=== PATIENT | female | born 1960 | race Caucasian/White ===

== ENCOUNTER → 2020-10-19 | Outpatient (CLI) | payer OTHER ==
[~2020-10-19] MED LIST: CHOL500015 PO; L.AC1CAP6 PO; LISI1TAB23 PO; SIMV40TA20 PO
[2020-10-19 09:29] LABS: MICROSCOPIC NOT IND
[2020-10-19 09:30] LABS: BASOPHILS % (AUTO) 3 % (0-1); EOSINOPHILS % (AUTO) 6 % (1-7); LYMPHOCYTES % (AUTO) 22 % (22-44); MEAN CORPUSCULAR HEMOGLOBIN 31.1 pg (27.0-34.8); MEAN CORPUSCULAR HGB CONC 33.8 g/dL (32.4-35.8); MEAN PLATELET VOLUME 7.9 fL (7.4-10.4); MONOCYTES % (AUTO) 7 % (2-9); NEUTROPHILS % (AUTO) 61 % (42-75); PLATELET COUNT 360 x10^3/uL (130-400); RED BLOOD COUNT 4.68 x10^6/uL (3.82-5.3); RED CELL DISTRIBUTION WIDTH 13.4 % (9.6-15.2)
[2020-10-19 09:32] LABS: MD NO
[2020-10-19 09:42] LABS: ANION GAP 3 mmol/L (5-15); CALCIUM 9.6 mg/dL (8.5-10.1); CHLORIDE 106 mmol/L (98-107)
[2020-10-19 09:45] LABS: ALANINE AMINOTRANSFERASE 34 U/L (12-78); ALKALINE PHOSPHATASE 67 U/L (45-117); BILIRUBIN,TOTAL 0.4 mg/dL (0.2-1.0); CREATININE 1.01 mg/dL (0.55-1.02); TOTAL PROTEIN 7.8 g/dL (6.4-8.2)
== END | disposition home or self-care (01) ==
LOC: STAR 08:29
PROVIDERS: ATTEND Obstetrics & Gynecology Gynecology
DX: Z01.818 Encounter for other preprocedural examination (principal); N84.0 Polyp of corpus uteri; N93.9 Abnormal uterine and vaginal bleeding, unspecified; Z20.822 Contact with and (suspected) exposure to COVID-19
CPT/HCPCS: 36415; 80053; 81003; 85025; 93005; U0003

== ENCOUNTER 2020-10-25 05:38 | Day surgery (SDC) | payer OTHER ==
[~2020-10-25] VITALS: Ht 157.5 cm; Wt 75.7 kg
[2020-10-25] MEDS ORDERED: LACTATED RINGERS 1,000 ML IV SCH (06:30)
[2020-10-25] MEDS ORDERED: LIDOCAINE-MPF 1%, 2ML INFIL ONE (06:30)
[2020-10-25] MEDS ORDERED: CHLORHEXIDINE 15 ML UDC MM ONE (06:30)
[2020-10-25] MEDS ORDERED: BUPIVACAINE/PF 0.25% ONE (06:51)
[2020-10-25] MEDS ORDERED: SILVER NITRATE STICK TP ONE (06:51)
[2020-10-25] MEDS ORDERED: EPINEPHRINE 1 MG/ML, 1ML ONE (06:52)
[2020-10-25] MEDS ORDERED: MIDAZOLAM 1 MG/ML, 2ML ONE (07:09)
[2020-10-25] MEDS ORDERED: FENTANYL PF 100 MCG/2ML ONE (07:09)
[2020-10-25] MEDS ORDERED: KETOROLAC 30 MG/1 ML ONE (07:27)
[2020-10-25] MEDS ORDERED: SUCCINYLCHOLINE 20 MG/ML, 10ML ONE (07:48)
[2020-10-25] MEDS ORDERED: DEXAMETHASONE 4 MG/ML, 1ML ONE (07:48)
[2020-10-25] MEDS ORDERED: ROCURONIUM 10MG/ML,5ML ONE (07:48)
[2020-10-25] MEDS ORDERED: PROPOFOL 10 MG/ML, 20ML ONE (07:48)
[2020-10-25] MEDS ORDERED: CEFAZOLIN 1,000 MG ONE (07:48)
[2020-10-25] MEDS ORDERED: ONDANSETRON 2MG/ML, 2ML ONE (07:48)
[2020-10-25] MEDS ORDERED: GLYCOPYRROLATE 0.2MG/1ML, 5ML ONE (07:48)
[2020-10-25] MEDS ORDERED: NEOSTIGMINE 1 MG/ML, 10ML ONE (07:48)
[2020-10-25] MEDS ORDERED: DIAZEPAM 5 MG/ML, 2ML IVPush PRN ×2 (08:00)
[2020-10-25] MEDS ORDERED: hydrALAzine 20 MG/ML, 1ML IV PRN ×2 (08:00)
[2020-10-25] MEDS ORDERED: HYDROmorphone 2 MG/ML, 1ML IVPush PRN ×2 (08:00)
[2020-10-25] MEDS ORDERED: ALBUTEROL SULFATE 2.5 MG/3 ML NPPB PRN ×2 (08:00)
[2020-10-25] MEDS ORDERED: FENTANYL PF 100 MCG/2ML IV PRN ×2 (08:00)
[2020-10-25] MEDS ORDERED: ACETAMINOPHEN 325 MG TABLET PO PRN ×2 (08:00)
[2020-10-25] MEDS ORDERED: LABETALOL 5MG/ML, 20ML IV PRN ×2 (08:00)
[2020-10-25] MEDS ORDERED: OXYcodone 5 MG/5 ML ORAL.SOL UDC PO PRN ×2 (08:00)
[2020-10-25] MEDS ORDERED: KETOROLAC 30 MG/1 ML IV PRN ×2 (08:00)
[2020-10-25] MEDS ORDERED: PROMETHAZINE 25 MG/ML, 1ML IV PRN ×2 (08:00)
[2020-10-25] MEDS ORDERED: MEPERIDINE/PF 25MG/0.5ML IVPush PRN ×2 (08:00)
[2020-10-25] MEDS ORDERED: ACETAMINOPHEN 325 MG TABLET ONE (08:52)
== END 2020-10-25 10:05 | disposition home or self-care (01) ==
LOC: OUT 05:38
PROVIDERS: ATTEND Obstetrics & Gynecology Gynecology
DX: N95.0 Postmenopausal bleeding (principal); C54.1 Malignant neoplasm of endometrium; I10 Essential (primary) hypertension; E78.5 Hyperlipidemia, unspecified; Z79.899 Other long term (current) drug therapy; Z90.49 Acquired absence of other specified parts of digestive tract; Z82.49 Family history of ischemic heart disease and other diseases of the circulatory system
CPT/HCPCS: 58558; 88305; J0330; J0690; J1100; J1885; J2250; J2405; J2704; J2710; J3010; J7120; J0171

== ENCOUNTER 2020-11-08 14:17 | Outpatient (CLI) | payer OTHER ==
[2020-11-08 15:40] LABS: BASOPHILS % (AUTO) 2 % (0-1); EOSINOPHILS % (AUTO) 3 % (1-7); LYMPHOCYTES % (AUTO) 25 % (22-44); MEAN CORPUSCULAR HEMOGLOBIN 30.9 pg (27.0-34.8); MEAN CORPUSCULAR HGB CONC 33.9 g/dL (32.4-35.8); MEAN PLATELET VOLUME 7.6 fL (7.4-10.4); MONOCYTES % (AUTO) 5 % (2-9); NEUTROPHILS % (AUTO) 64 % (42-75); PLATELET COUNT 393 x10^3/uL (130-400); RED BLOOD COUNT 4.59 x10^6/uL (3.82-5.3); RED CELL DISTRIBUTION WIDTH 13.3 % (9.6-15.2)
[2020-11-08 15:52] LABS: ALBUMIN 4.2 g/dL (3.4-5.0); ANION GAP 5 mmol/L (5-15); CALCIUM 9.5 mg/dL (8.5-10.1); CHLORIDE 102 mmol/L (98-107); INTERNATIONAL NORMALIZED RATIO 1.1 (0.93-1.1); PROTHROMBIN TIME 11.7 Seconds (9.6-11.5)
[2020-11-08 15:53] LABS: MD NO
[2020-11-08 15:55] LABS: ALANINE AMINOTRANSFERASE 33 U/L (12-78); ALKALINE PHOSPHATASE 72 U/L (45-117); BILIRUBIN,TOTAL 0.5 mg/dL (0.2-1.0); CREATININE 0.94 mg/dL (0.55-1.02); TOTAL PROTEIN 8.1 g/dL (6.4-8.2)
[2020-11-09] MEDS ORDERED: FENTANYL PF 100 MCG/2ML ONE (19:28)
== END 2020-11-08 23:59 | disposition home or self-care (01) ==
LOC: STAR 14:17
PROVIDERS: ATTEND Obstetrics & Gynecology
DX: Z01.812 Encounter for preprocedural laboratory examination (principal); Z20.822 Contact with and (suspected) exposure to COVID-19; C54.1 Malignant neoplasm of endometrium
CPT/HCPCS: 36415; 80053; 85025; 85610; 85730; 86304; U0003

== ENCOUNTER 2020-11-12 06:35 | Day surgery (SDC) | payer OTHER ==
[~2020-11-12] VITALS: Ht 157.5 cm; Wt 73.6 kg
[2020-11-12 07:34] VITALS: BP 133/75
[2020-11-12] MEDS ORDERED: LIDOCAINE-MPF 1%, 2ML ONE (07:53)
[2020-11-12] MEDS ORDERED: LIDOCAINE-MPF 1%, 2ML INFIL ONE (08:00)
[2020-11-12] MEDS ORDERED: CHLORHEXIDINE 15 ML UDC PO ONE (08:00)
[2020-11-12] MEDS ORDERED: CEFOTETAN PMX 2GM/50ML 50 ML IVPB ONE (08:00)
[2020-11-12] MEDS ORDERED: LACTATED RINGERS 1,000 ML IV SCH (08:00)
[2020-11-12] MEDS ORDERED: HEPARIN 1,000 UNITS/ML, 10ML ONE (08:31)
[2020-11-12] MEDS ORDERED: INDOCYANINE GREEN 25 MG VIAL ONE (08:31)
[2020-11-12] MEDS ORDERED: BUPIVACAINE/PF 0.25% ONE (08:32)
[2020-11-12] MEDS ORDERED: MIDAZOLAM 1 MG/ML, 2ML ONE (08:32)
[2020-11-12] MEDS ORDERED: BUPIVACAINE/PF-EPI 0.25% 1:200K ONE (08:32)
[2020-11-12] MEDS ORDERED: FENTANYL PF 250 MCG/5ML ONE (08:33)
[2020-11-12] MEDS ORDERED: KETOROLAC 30 MG/1 ML ONE (08:47)
[2020-11-12] MEDS ORDERED: ONDANSETRON 2MG/ML, 2ML ONE (09:54)
[2020-11-12] MEDS ORDERED: DEXAMETHASONE 4 MG/ML, 1ML ONE (09:54)
[2020-11-12] MEDS ORDERED: PROPOFOL 10 MG/ML, 20ML ONE (09:54)
[2020-11-12] MEDS ORDERED: GLYCOPYRROLATE 0.2MG/1ML, 5ML ONE (09:54)
[2020-11-12] MEDS ORDERED: NEOSTIGMINE 1 MG/ML, 10ML ONE (09:54)
[2020-11-12] MEDS ORDERED: ROCURONIUM 10MG/ML,5ML ONE (09:54)
[2020-11-12] MEDS ORDERED: LIDOCAINE-MPF 2% ,5ML ONE (09:54)
[2020-11-12] MEDS ORDERED: PROMETHAZINE 25 MG/ML, 1ML IVPush PRN (10:30)
[2020-11-12] MEDS ORDERED: LABETALOL 5MG/ML, 20ML IV PRN (10:30)
[2020-11-12] MEDS ORDERED: MEPERIDINE/PF 25MG/0.5ML IVPush PRN (10:30)
[2020-11-12] MEDS ORDERED: HYDROmorphone 1 MG/ML, 1ML INJ IVPush PRN (10:30)
[2020-11-12] MEDS ORDERED: ALBUTEROL SULFATE 2.5 MG/3 ML NPPB PRN (10:30)
[2020-11-12] MEDS ORDERED: LORazepam 2 MG/ML, 1ML IVPush PRN (10:30)
[2020-11-12] MEDS ORDERED: FENTANYL PF 100 MCG/2ML IV PRN (10:30)
== END 2020-11-12 14:40 | disposition home or self-care (01) ==
LOC: OUT 06:35
PROVIDERS: ATTEND Obstetrics & Gynecology
DX: C54.1 Malignant neoplasm of endometrium (principal); N84.0 Polyp of corpus uteri; D25.9 Leiomyoma of uterus, unspecified; D27.0 Benign neoplasm of right ovary; N73.6 Female pelvic peritoneal adhesions (postinfective); I10 Essential (primary) hypertension; E78.5 Hyperlipidemia, unspecified; E11.9 Type 2 diabetes mellitus without complications; J45.909 Unspecified asthma, uncomplicated; E66.9 Obesity, unspecified; Z68.30 Body mass index [BMI] 30.0-30.9, adult; Z79.82 Long term (current) use of aspirin; Z79.899 Other long term (current) drug therapy; Z86.718 Personal history of other venous thrombosis and embolism; Z90.49 Acquired absence of other specified parts of digestive tract; Z98.890 Other specified postprocedural states; Z82.49 Family history of ischemic heart disease and other diseases of the circulatory system; Z80.0 Family history of malignant neoplasm of digestive organs
CPT/HCPCS: 36415; 38570; 58552; 86850; 86900; 86923; 88112; 88305; 88309; 88329; 88333; J1100; J1644; J1885; J2250; J2405; J2704; J2710; J3010; J7120; S2900